=== PATIENT | female | born 1995 | race African-American/Black ===

== ENCOUNTER 2019-10-10 16:10 | Emergency (ER) | payer BC, OTHER ==
[~2019-10-10] VITALS: Ht 167.6 cm; Wt 64.4 kg
[2019-10-10] MEDS ORDERED: ATENOLOL 50MG T50 MG PO (16:23)
[2019-10-10 16:29] LABS: URINE BILIRUBIN NEGATIVE (Negative); URINE BLOOD NEGATIVE (Negative); URINE CLARITY CLEAR; URINE COLOR YELLOW; URINE GLUCOSE-RANDOM* NEGATIVE (Negative); URINE KETONES NEGATIVE (Negative); URINE LEUKOCYTES-REFLEX NEGATIVE (Negative); URINE NITRITE-REFLEX NEGATIVE (Negative); URINE PROTEIN (DIPSTICK) NEGATIVE (Negative); URINE SPECIFIC GRAVITY 1.015 (1.005-1.035)
[2019-10-10 16:47] LABS: ABSOLUTE NEUTROPHILS 10.1 thou/uL (1.4-8.2); BASOPHILS 0.9 % (0.0-2.0); EOSINOPHILS 0.9 % (0.0-3.0); HEMATOCRIT 38.8 % (37.0-47.0); HEMOGLOBIN 13.2 gm/dL (12.0-15.0); LYMPHOCYTES 21.2 % (24.0-44.0); MCH 32.1 pg (26.0-34.0); MCHC 34.1 g/dL (28.0-37.0); MCV 94.2 fL (80.0-100.0); MONOCYTES 4.3 % (1.0-8.0); PLATELET COUNT 201 thou/uL (150-400); POLYS 72.7 % (36.0-66.0); RBC 4.12 mil/uL (4.20-5.00); RDW 13.1 % (10.5-14.5); WBC 13.9 thou/uL (4.0-11.0)
[2019-10-10 16:55] LABS: CALCIUM 8.8 mg/dL (8.5-10.1); CREATININE 0.8 mg/dL (0.6-1.0)
[2019-10-10 17:01] LABS: ALBUMIN 3.8 g/dL (3.4-5.0); TOTAL BILIRUBIN 0.4 mg/dL (<0.1-1.0); TOTAL PROTEIN 7.2 g/dL (6.4-8.2)
[2019-10-10] MEDS ORDERED: NYSTATIN100000 UNI SWISH&SPIT (19:30)
[2019-10-10] MEDS ORDERED: LABETALOL HCL100 MG PO (19:30)
[2019-10-10] MEDS ORDERED: ONDANSETRON HCL4 M2 PO (19:30)
[2019-10-10 20:05] VITALS: BP 180/111
== END 2019-10-10 20:20 | disposition home or self-care (01) ==
LOC: ER 16:10
PROVIDERS: Physician Assistant
DX: O34.81 Maternal care for other abnormalities of pelvic organs, first trimester (principal); N83.201 Unspecified ovarian cyst, right side; O13.1 Gestational [pregnancy-induced] hypertension without significant proteinuria, first trimester; R42 Dizziness and giddiness; Z88.6 Allergy status to analgesic agent; Z20.2 Contact with and (suspected) exposure to infections with a predominantly sexual mode of transmission; Z3A.01 Less than 8 weeks gestation of pregnancy

== ENCOUNTER 2019-10-11 11:54 | Emergency (ER) | payer BC, OTHER ==
[~2019-10-11] VITALS: Ht 167.6 cm; Wt 64.4 kg
[~2019-10-11 11:54] MED LIST: ATENOLOL 50MG T50 MG PO; LABETALOL HCL100 MG PO; NYSTATIN100000 UNI SWISH&SPIT; ONDANSETRON HCL4 M2 PO
[2019-10-11 12:47] LABS: BASOPHILS 0.8 % (0.0-2.0); EOSINOPHILS 0.9 % (0.0-3.0); HEMATOCRIT 38.1 % (37.0-47.0); HEMOGLOBIN 12.9 gm/dL (12.0-15.0); LYMPHOCYTES 22.9 % (24.0-44.0); MCV 94.1 fL (80.0-100.0); MONOCYTES 3.6 % (1.0-8.0); PLATELET COUNT 206 thou/uL (150-400); POLYS 71.8 % (36.0-66.0); RBC 4.04 mil/uL (4.20-5.00); RDW 13.2 % (10.5-14.5); WBC 11.1 thou/uL (4.0-11.0)
[2019-10-11 12:51] LABS: ANION GAP 10 mmol/L (7-16); BUN 6 mg/dL (7-18); CALCIUM 9.3 mg/dL (8.5-10.1); CHLORIDE 105 mmol/L (98-107); CO2 24 mmol/L (21-32); CREATININE 0.8 mg/dL (0.6-1.0); GLUCOSE 85 mg/dL (74-106); POTASSIUM 3.3 mmol/L (3.5-5.1); SODIUM 139 mmol/L (136-145)
[2019-10-11 13:01] LABS: MAGNESIUM 1.9 mg/dL (1.8-2.4); TROPONIN-I <0.06 ng/mL (<0.06)
[2019-10-11 14:24] VITALS: BP 173/116
--- NOTE | 2019-10-12 17:27 | EKG ---
[address] [address] ELECTROCARDIOGRAM REPORT Name: JESSICA GARCIA Room #: [facility]P [facility] [id number] Admission: 10/11/19 Attend Phys: Discharge: 10/11/19 Date of : [birth year] Report #: [id number] THIS REPORT FOR: //name// [facility] ED Test Date: 2019-10-11 Test Time: 12:55:12 Pat Name: JESSICA GARCIA Department: Room: Gender: F [employer] Instructor: STEFFANY : 1995 Requested By: Roge Galvan Order Number: [id number] MD: Earl Valdivia Measurements Intervals [place] Rate: 74 P: 58 DE: 146 QRS: 64 QRSD: 88 T: 35 QT: 385 QTc: 428 Interpretive Statements Sinus rhythm Normal tracing No previous ECG available for comparison Electronically Signed On 10-12-2019 17:27:02 [employer] by Earl Valdivia [email or web address] <ELECTRONICALLY SIGNED> By: Earl Valdivia MD, [facility] 10/12/19 1727 [id number] Earl Valdivia MD, FACC /EPI
== END 2019-10-11 14:25 | disposition home or self-care (01) ==
LOC: ER 11:54
PROVIDERS: Emergency Medicine
DX: O16.1 Unspecified maternal hypertension, first trimester (principal); Z3A.01 Less than 8 weeks gestation of pregnancy; Z88.6 Allergy status to analgesic agent; Z79.899 Other long term (current) drug therapy